=== PATIENT | male | born 1975 | race Caucasian/White ===

== ENCOUNTER 2017-05-29 07:00 | Inpatient (IN) | payer OTHER ==
[~2017-05-29] VITALS: Ht 177.8 cm; Wt 72.1 kg
--- NOTE | ~2017-05-29 | PN ---
Unit #: [id number] #: [id number] Patient: BLAZE BRADFORD [id number] [facility] [address] [place] [address] [id number] MR#: [id number] NAME: BLAZE BRADFORD. ROOM: P174 Age: 42 Sex: M Admission Date: 07/09/2017 : 1975 Attending Physician: Abel Cummings M.D. Admitting Physician: Abel Cummings M.D. Primary Care Physician: Generic Doctor Not In System [facility] PROGRESS NOTES DATE 07/11/2017 DISCUSSION The patient is abed today not participating in the programming. He is generally but firmly confronted regarding this. The patient reports that he has made arrangements to go to a treatment facility in [facility] but I have had to inform the patient that previously available transportation provided by this hospital is no longer available and he will need to speak with the rn social services regarding transportation to [place]. Discharge should take place tomorrow. Dictated by... Abel Cummings M.D. CB/roshni TD: 07/12/2017 00:09 JOB #: [id number] [facility] PROGRESS NOTES Page 1 of 1 X Abel Cummings MD X PROGRESS NOTE
--- NOTE | ~2017-05-29 | HP ---
Unit #: [id number] #: [id number] Patient: BLAZE BRADFORD [id number] [place] [address] [id number] MR#: [id number] NAME: BLAZE BRADFORD. ROOM: 74 Age: 42 Sex: M Admission Date: 07/09/2017 : 1975 Attending Physician: Abel Cummings M.D. Admitting Physician: Abel Cummings M.D. Primary Care Physician: Generic Doctor Not In System HISTORY AND PHYSICAL HISTORY OF PRESENT ILLNESS Patient is a 42-year-old male admitted to [facility] on 07/09/2017 to detox from alcohol. PAST MEDICAL HISTORY 1. Hepatitis B. 2. Hepatitis C. 3. Right ankle and right knee pain. PAST SURGICAL HISTORY 1. VATS procedure to correct a left pneumothorax. 2. Facial reconstruction. 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 He is homeless. He drinks one pint of vodka per day. FAMILY MEDICAL HISTORY Noncontributory. ALLERGIES Codeine and tramadol. CURRENT MEDICATIONS Patient is not on any home medications. REVIEW OF SYSTEMS CONSTITUTIONAL: No fever or chills. HEENT: Denies any sore throat, ear pain or runny nose. CARDIOVASCULAR: Denies chest pain, irregular heart rhythm or palpitations. CHEST: Denies shortness of breath or cough. No hemoptysis. GASTROINTESTINAL: Denies nausea, vomiting, diarrhea or chronic constipation. ENDOCRINE: Denies history of increased thirst or urination. No recent significant weight loss or gain. GENITOURINARY: Denies dysuria, frequency, or hematuria. SKIN: Denies any rashes. HEMATOLOGIC: Denies history of increased bleeding or bruising. MUSCULOSKELETAL: He complains of right ankle and right knee pain. NEUROLOGIC: Denies problems with vision or speech. No frequent, severe headaches. No numbness, tingling or weakness in any extremities. Denies loss of bladder or bowel control. PHYSICAL EXAM Unit #: [id number] #: [id number] Patient: BLAZE BRADFORD GENERAL: He is awake, alert and oriented in no acute distress. VITAL SIGNS: Temperature 98.4, heart rate 99, respiration 16, blood pressure 93/63. HEIGHT: 5 foot 10. WEIGHT: 159 pounds. SKIN: Warm and dry without rash or lesion. HEENT: Normocephalic. TMs not viewed. Oral and nasal passages clear. Conjunctivae clear. PERRLA. EOMs intact. NECK: Supple without lymphadenopathy or thyromegaly. HEART: Regular rate and rhythm without murmur. LUNGS: Clear. ABDOMEN: Soft, nontender. : Not done. EXTREMITIES: No evidence of cyanosis, clubbing or edema. Moves all without focal deficit. NEUROLOGICAL: Grossly within normal limits. Cranial Nerves: II: Visual aguilar are intact. III, IV AND : Extraocular movements are intact. Pupils are equal, round and reactive to light. V: Facial sensation is grossly normal. VII: Facial movements and expression are normal. VIII: Auditory acuity grossly intact. IX, X: Uvula is midline. Phonation is normal. XI: Patient shrugs shoulders and turns head normally. XII: Tongue protrudes in the midline. Sensory and Motor Function: Sensory and motor sensation is grossly normal. Motor: moves all extremities well. IMPRESSION 1. Psychiatric admission. 2. Hepatitis B. 3. Hepatitis C. 4. Right ankle and knee pain. RECOMMENDATIONS Psychiatric per psychiatrist. MEDICAL: No contraindication to participate in facility activities. MEDICAL PROGNOSIS Good. MEDICAL CONDITION Stable. Dictated by... 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
--- NOTE | ~2017-05-29 | DS ---
Unit #: [id number] #: [id number] Patient: BLAZE BRADFORD [id number] [facility] [address] [place] [address] [id number] MR#: [id number] NAME: BLAZE BRADFORD. ROOM: [facility] Age: 42 Sex: M Admission Date: 07/09/2017 : 1975 Discharge Date: 07/12/2017 Attending Physician: Abel Cummings M.D. Primary Care Physician: Generic Doctor Not In System DISCHARGE SUMMARY REASON FOR ADMISSION The patient is a 42-year-old , white male, admitted to the [address] [place] [address] for alcohol detox. HOSPITAL COURSE The patient was admitted to [facility] unit and placed on routine detoxification protocol for opioids. His detox was smooth and uneventful one. On 07/11, the patient stated that he wished to return to [place], [place] but upon learning that transportation to [place] would not be available the patient was agreeable for discharge to the [facility]. He requested, that that take place on 07/12 and it was so ordered. DISCHARGE DIAGNOSES [place] Alcohol use disorder. [place] DISPOSITION ON DISCHARGE The patient was discharged on no psychotropic medications. Follow up will take place through the auspices of community mental health resources in the [facility]. PROGNOSIS The patient's prognosis is considered fair. Dictated by... Abel Cummings M.D. CB/cresencio TD: 07/13/2017 12:52 JOB #: [id number] Unit #: [id number] #: [id number] Patient: BLAZE BRADFORD DISCHARGE SUMMARY Page 1 of 1 X Abel Cummings MD X DISCHARGE SUMMARY
--- NOTE | ~2017-05-29 | A ---
[facility] Nutrition Therapy DATE: 07/11/17 Patient: BLAZE BRADFORD Physician: SVETLANA Address: [address] Room/Bed: [address], Zip: [place] [address] Admit Date: 07/09/17 Date of : [birth year] Height: 5 10 Weight: [phone] NUTRITIONAL ASSESSMENT: REASON: 1 point malnutrition risk score re: unintentional weight loss Admitting dx: 42 y/o male undergoing ETOH detox PMH: Hep B/C Anthropometrics: Ht: 70", Wt: 159 lbs, BMI: 22 (normal) Labs: AST 81, ALT 45 Meds: Reviewed Assessment: Chart reviewed, events noted. See admitting dx and PMH as stated above. H&P reviewed. Patient undergoing ETOH detox. RD assessing due to reported weight loss of unknown amount during the malnutrition risk screening. No needs assessment available at this time. RD unable to interview the patient as I am charting from another facility. He is on a regular diet. Per nursing documentation, he has been eating and sleeping well. 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 See RD recs below. Dx: Unintentional weight loss r/t ETOH abuse AEB 1 point malnutrition risk score. Intervention: Regular diet Monitoring, Evaluation and Goals: 1. PO intake > 50% of meals. 2. Prevent further unintentional weight loss. Monitor: per consult, prn Recommendations: 1. Agree with regular diet, encourage oral intake. 2. If oral intake declines to < 50% of meals please order Ensure Plus BID. 3. Please weigh q 3 days for monitoring purposes due to pt report of weight loss. 4. Please consult RD with any further nutritional needs. Mild nutrition risk [facility] Nutrition Therapy DATE: 07/11/17 Patient: BLAZE BRADFORD Physician: SVETLANA Address: [address] Room/Bed: [address], Zip: [place] [address] Admit Date: 07/09/17 Date of : [birth year] Height: 5 10 Weight: [phone] Respectfully, Louise Calero, RD, LD [facility] cc: client file
--- NOTE | ~2017-05-29 | PA ---
Unit #: [id number] #: [id number] Patient: BLAZE BRADFORD [id number] [facility] [address] [place] [address] [id number] MR#: [id number] NAME: BLAZE BRADFORD. ROOM: [facility] Age: 42 Sex: M Admission Date: 07/09/2017 : 1975 Date of Assessment: 07/10/2017 Attending Physician: Abel Cummings M.D. Admitting Physician: Abel Cummings M.D. Primary Care Physician: Generic Doctor Not In System PSYCHIATRIC ASSESSMENT IDENTIFYING INFORMATION The patient is a 42-year-old white male admitted to the [address] [place] [address] for alcohol detox. CHIEF COMPLAINT None given. INFORMANT Patient, reliability is good. HISTORY OF PRESENT ILLNESS The patient is a 42-year-old white male last discharged from this facility in November of this year. He has a history of alcohol dependence and is fearful that he may have been using some other substances after he states he was found "naked in the middle of [place] in [place]." The patient is presently homeless. 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 He states that he has been drinking 1/2 gallon of vodka on a daily basis and also is fearful that he may have used some methamphetamine or cocaine recently. The patient denies current suicidal or homicidal ideation. He does have a history of hepatitis B and C per his report. When seen today the patient denies any suicidal or homicidal ideation and denies any psychotic symptoms. PAST PSYCHIATRIC HIST As above. PAST MEDICAL HISTORY Significant for a history of hepatitis B and C. The patient has also been treated for an infection with Keflex. MEDICATIONS Keflex. ALLERGIES Codeine, tramadol. FAMILY HISTORY Not contributory. SOCIAL HISTORY The patient is presently homeless. His substance use is noted previously. 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 Unit #: [id number] #: [id number] Patient: BLAZE BRADFORD MENTAL STATUS EXAMINATION At this time reveals the patient to be a well-developed, well-nourished white male appearing his stated age. He is in no apparent physical distress at the time of examination. He is awake, alert, and oriented in all spheres. His mood is mildly dysphoric. His affect congruent. Speech is generally relevant and coherent. There are no gross deficits to memory or cognition noted. Intelligence is judged to be in the average range based on fund of knowledge. The patient is cooperative throughout the interview. He is currently denying suicidal or homicidal ideation or psychotic features. Judgment and insight appear to be intact. ASSETS AND LIABILITIES ASSETS: Motivation for change LIABILITIES: Lack of resources. DIAGNOSTIC IMPRESSION 1. Alcohol use disorder. 2. Hepatitis B, hepatitis C per patient's history. TREATMENT PLAN The patient remains hospitalized for safety and stabilization. A routine detoxification protocol for alcohol has been initiated and we will continue previously prescribed Keflex. ESTIMATED LENGTH OF STAY Three to five days with followup to take place through the auspices of community mental resources in the [facility] ED. Dictated by... Abel Cummings M.D. BRANDON/roshni TD: 07/11/2017 00:20 JOB #: [id number] PSYCHIATRIC ASSESSMENT Page 1 of 1 X Abel Cummings MD X PSYCHIATRIC ASSESSMENT
[2017-07-10 13:23] LABS: ALBUMIN SERUM 3.3 g/dL (3.5-5.0); BILIRUBIN,TOTAL 0.8 mg/dL (0.2-2.0); BUN/CREATININE RATIO 8.33; CALCIUM SERUM 8.5 mg/dL (8.4-10.2); CREATININE SERUM 1.2 mg/dL (0.6-1.4); GLOM FILT RATE Estimated 74.2 mL/min (>60); POTASSIUM 3.8 mmol/L (3.5-5.1); PROTEIN TOTAL SERUM 6.9 g/dL (6.0-8.3)
[2017-07-10 13:29] LABS: BASOPHIL# 0.1 X10e3 (0-0.3); BASOPHIL% 0.9 % (0-2.5); EOSINOPHIL% 0.5 % (0.0-7.0); HEMATOCRIT 39.6 % (38.0-50.0); LYMPHOCYTE# 0.9 X10e3 (1.0-3.5); LYMPHOCYTE% 14.7 % (17.0-45.0); MEAN CELL VOLUME 84.9 FL (83-96); MEAN CORPUSCULAR HGB CONC 32.9 g/dL (30-36); MEAN PLATELET VOLUME 8.9 FL (6.5-11.5); MONOCYTE# 0.3 X10e3 (0-1.0); NEUTROPHIL# 5.1 X10e3 (1.5-7.1); NEUTROPHIL% 79.9 % (40-75); PLATELET COUNT 135 X10e3 (140-420); RED BLOOD COUNT 4.67 X10e (3.90-5.60); RED CELL DISTRIBUTION WIDTH 18.4 % (11.0-15.5); WHITE BLOOD COUNT 6.3 X10e3 (4.0-10.5)
[2017-07-10 13:36] LABS: DIFF IND NO
[2017-07-12 12:54] LABS: URINE APPEARANCE CLEAR; URINE BILIRUBIN NEG (NEG); URINE BLOOD NEG (NEG); URINE COLOR DK YELLOW; URINE GLUCOSE NEG (NEG); URINE KETONE NEG (NEG); URINE LEUKOCYTE ESTERASE NEG (NEG); URINE NITRATE NEG (NEG); URINE PH 6.5 (5-8); URINE PROTEIN NEG (NEG); URINE SPECIFIC GRAVITY 1.024 (1.003-1.035)
[2017-07-12 13:20] LABS: AMPHETAMINE POS (NEG); BARBITURATES NEG (NEG); BENZODIAZEPINES POS (NEG); COCAINE POS (NEG); MARIJUANA NEG (NEG); OPIATES NEG (NEG); TRICYCLIC ANTIDEPRESSANTS NEG (NEG); U METHADONE NEG (NEG)
== END 2017-07-12 15:48 | disposition home or self-care (01) | DRG 897 ==
LOC: P1E 07-09 13:31
PROVIDERS: Specialist
PROC: HZ2ZZZZ Detoxification Services for Substance Abuse Treatment (ICD-10-PCS; principal; 2017-07-09)
DX: F10.20 Alcohol dependence, uncomplicated (principal); Z86.19 Personal history of other infectious and parasitic diseases; Z59.0 Homelessness; Z88.5 Allergy status to narcotic agent; Z88.8 Allergy status to other drugs, medicaments and biological substances
CPT/HCPCS: 80053; 80307; 81003; 85025; 86592